=== PATIENT | male | born 1970 | race Caucasian/White ===

== ENCOUNTER → 2020-07-05 08:06 | Outpatient (CLI) | payer OTHER, SELFPAY ==
--- NOTE | ~2020-07-05 | CT_ITS ---
EXAMINATION: CT sinus wo con DATE: 07/05/2020 08:18 INDICATION: Chronic congestion, chronic sinusitis TECHNIQUE: Computed tomography (CT) of the paranasal sinuses was performed without contrast. Iterativ e reconstruction technique was employed. Exam dose: 259.66 mGy-cm total exam DLP. COMPARISON: None FINDINGS: There is prominent leftward deviation of the upper portion of the nasal septum. There is pr ominent gabino bullosa and interlamellar cell of the right middle nasal turbinate. There is intralamellar cell of the left middle nasal turbinate. There is asymmetric soft tissue swelling of the right nasal turbinates. There are several small mucus retention cysts of the maxillary sinuses. There is a small mucus retent ion cyst of the right sphenoid sinus. The paranasal sinuses otherwise are normally developed and aera ely. The ostiomeatal units are patent. The mastoid air cells are normally aerated. Middle and inner ear apparatus are unremarkable. IMPRESSION: Leftward deviation of the upper left nasal septum associated with prominent gabino bullo sa of right middle nasal turbinate Intralamellar cell of both middle nasal turbinates Occasional small mucous retention cysts of bilateral maxillary sinuses and right sphenoid sinus Reviewed, dictated and finalized at [facility]. Reviewed, dictated and finalized at [facility]. IMPRESSION: Leftward deviation of the upper left nasal septum associated with prominent gabino bullosa of right middle nasal turbinate Intralamellar cell of both middle nasal turbinates Occasional small mucous retention cysts of bilateral maxillary sinuses and righ t sphenoid sinus
== END ==
PROVIDERS: Visit Provider Allergy & Immunology
DX: J31.0 Chronic rhinitis (principal); J34.2 Deviated nasal septum
CPT/HCPCS: 70486